=== PATIENT | male | born 1955 | race Caucasian/White ===

== ENCOUNTER 2020-08-01 11:15 | Outpatient (CLI) | payer BC, SELFPAY ==
--- NOTE | ~2020-08-01 | MR_ITS ---
EXAMINATION: MR shoulder LT wo con DATE: 08/01/2020 12:47 INDICATION: Complete rotator cuff tear or rupture of left shoulder. TECHNIQUE: Magnetic resonance imaging (MRI) of the left shoulder was performed without intravenous co ntrast. Sequences included axial PD-weighted FS FSE, coronal oblique PD-weighted FS FSE and T2-weight ed FS FSE, and sagittal oblique T2-weighted FS FSE and T1-weighted FSE. COMPARISON: Left shoulder radiographs 07/23/2020 FINDINGS: Coracoacromial arch: The acromion undersurface is flat in morphology (type I). There is severe acromioclavicular joint ost eoarthritis. There is moderate subacromial/subdeltoid bursitis. Rotator cuff: There is a full-thickness tear of supraspinatus tendon and anterior infraspinatus tendon measuring 14 mm anterior to posterior by 20 mm proximal to distal. There is a partial thickness interstitial tear of posterior infraspinatus tendon. Teres minor tendon is normal. There is an articular-sided partial tear of subscapularis tendon. There is mild fatty atrophy of the rotator cuff muscle bellies. Biceps tendon and glenoid labrum: Biceps tendon is in bicipital groove. There is mild intra-articular biceps tendinopathy. There is a t ear of the glenoid labrum from 11:00 to 12:00 (SLAP tear). Fluid: There is a small glenohumeral joint effusion. Bones/cartilage: There is cartilage surface irregularity of glenoid and humeral head. IMPRESSION: 1. Full-thickness rotator cuff tear. 2. Mild glenohumeral joint chondrosis. SLAP tear. 3. Small glenohumeral joint effusion and moderate subacromial/subdeltoid bursitis. 4. Mild intra-articular biceps tendinopathy. 5. Severe acromioclavicular joint osteoarthritis. Reviewed, dictated and finalized at location [facility]. D [employer] MANAGER IMPRESSION: 1. Full-thickness rotator cuff tear. 2. Mild glenohumeral joint chondrosis. SLAP tear. 3. Small glenohumeral joint effusion and moderate subacromial/subdeltoid bursit is. 4. Mild intra-articular biceps tendinopathy. 5. Severe acromioclavicular joint osteoarthritis.
== END 2020-08-01 11:16 | disposition home or self-care (01) ==
PROVIDERS: Visit Provider Orthopaedic Surgery
DX: M75.122 Complete rotator cuff tear or rupture of left shoulder, not specified as traumatic (principal); M19.012 Primary osteoarthritis, left shoulder; M25.412 Effusion, left shoulder
CPT/HCPCS: 73221

== ENCOUNTER 2020-08-20 00:27 | Outpatient (CLI) | payer BC, SELFPAY ==
[2020-08-20 19:06] LABS: SARS-CoV-2 RNA PCR Negative
== END 2020-08-20 00:28 | disposition home or self-care (01) ==
LOC: ANHCOVIDDT 00:27
PROVIDERS: Anesthesiology; Visit Provider Orthopaedic Surgery
DX: Z01.812 Encounter for preprocedural laboratory examination (principal); Z20.822 Contact with and (suspected) exposure to COVID-19
CPT/HCPCS: C9803; U0003

== ENCOUNTER 2020-08-23 00:53 | Day surgery (SDC) | payer BC, SELFPAY ==
[2020-08-16 13:41] VITALS: BMI 31.8
[2020-08-23] VITALS (13 sets, daily range): BP systolic 123–174; BP diastolic 65–105; PULSE 68–85; RESP 10–16; TEMP 36.1–36.6; O2SAT 94–99
[2020-08-23] MEDS: ACETAMINOPHEN 500 MG TABLET 1000 MG PO (06:42)
[2020-08-23] MEDS: LACTATED RINGERS 1,000 ML 30 ML IV CONT ×2 (07:15→10:07)
[2020-08-23] MEDS: KETOROLAC 15 MG/ML VIAL (*BKC) IV PUSH (07:17)
--- NOTE | 2020-08-23 07:19 | WPDHPUPDATE1 ---
History and Physical Update Update Date/Time: 08/23/20 07:19 History and Physical has been reviewed, including an updated exam of the patient. There are NO changes in the patient's condition. Risks, benefits, and alternatives have been discussed and questions answered. Patient agrees to proceed with procedure.
--- NOTE | 2020-08-23 07:34 | SUR.PREOP ---
[id number] STATES I AM VERY ANGRY, I WAS TOLD MY COULD BE IN HERE WITH ME AND THEY WON'T LET HER COME IN, MY PAYMENT THAT YOU GUYS TOLD ME I HAD TO MAKE THIS MORNING CAN'T BE ACCEPTED AND I CAN'T CALL UNTIL 8. MY B/P IS HIGH BECAUSE I'M ANGRY PT VERY AGITATED BUT COOPERATIVE WITH ANSWERING QUESTIONS AND WITH ALLOWING TASKS. INSISTENT THAT HE SPEAK WITH PER PHONE, CAN NOT GET PHONE SERVICE, DOES NOT WANT TO USE HOSPITAL PHONE, ALLOWED TO USE CELL PHONE IN AFTER HOURS WAITING ROOM. PT AWARE HE CAN CANCEL/POSTPONE SURGERY IF HE WANTS-STATES HE CAN'T DO THAT. DR. GALINDO AWARE OF ABOVE. 0650-CALL PLACED TO DR. ALEJANDRA TO INFORM OF ABOVE-VM LEFT. 0655-DR. ALEJANDRA RETURNED CALL AND STATES PT DOES WANT TO PROCEED. HE WILL BE HERE TO SPEAK WITH PT ~0715.
--- NOTE | 2020-08-23 07:37 | WPDANESEPPF ---
Anes - Initial Pre Proc Eval Procedure: Operation Date: 08/23/20 07:30 Proposed Procedures p Left Arthroscopic Rotator Cuff Repair Subacromial Decompression - Renaldo Kowalski MD Date/Time: 08/23/20 07:37 Surgeon: Renaldo Kowalski MD Pre Op Diagnosis: Complete Rotator Cuff Tear Patient Data Age: 64 Gender: M Height: 5 ft 8 in Weight: 98.3 kg Last Vital Signs Temp 36.6 C 08/23/20 06:18 Pulse 74 08/23/20 06:18 Resp 16 08/23/20 06:18 BP 170/94 H 08/23/20 07:14 Pulse Ox 97 08/23/20 06:18 Allergies Allergy/AdvReac Type Severity Reaction Status Date / Time erythromycin base Allergy Severe Unstoppable Verified 08/23/20 06:22 Nausea and Vomiting Home Medications Medication Instructions Recorded Confirmed Type aspirin 81 mg tablet,delayed 81 mg PO DAILY 07/23/20 08/20/20 History release atorvastatin 20 mg tablet 20 mg PO DAILY 07/23/20 08/20/20 History famotidine 20 mg PO DAILY PRN 08/23/20 08/23/20 History Patient hx anesthesia problems: none Family hx anesthesia problems: none PMFSH Past Medical History Medical History (Updated 08/23/20 @ 07:37 by Mau Gallegos MD) History of femur fracture (~2015) Hyperlipidemia Surgical History Surgical History History of shoulder surgery (~10/2002) Supraspinatus Tear/Bone Spur Family History Family History Mother Breast cancer Social History Social History Smoking status: Never smoker Alcohol intake: current Drinks per week: 2 Substance use: unknown Substance use type: does not use Living arrangements: with family Spiritual care concerns: No Anes - Eval Final PreProcedure Day of Procedure 08/23/20 07:37 Patient weight: obese Heart: regular rate and rhythm Lungs: clear to auscultation Airway: Mallampati scale class II Neurological: alert and oriented Last oral intake: >/= 8 hours ASA classification: II Emergent: no Anesthetic plan: proceed Anesthesia type and monitoring: general ETT and standard monitoring Informed Consent: The patient's anesthetic plan and its attendant risks and benefits were discussed with the patient/family/POA. Questions were solicited and answers provided to the satisfaction of the patient/family/POA.
--- NOTE | 2020-08-23 07:38 | WPDANESPNB ---
Anes - Peripheral Nerve Block Date/Time: 08/23/20 07:38 I have discussed with the patient/family/POA the placement of a peripheral nerve block for post-operative pain management, including associated risks, benefits, complications, and side effects. Alternative methods of post-operative analgesia were detailed. Questions were solicited and answers provided to the satisfaction of the patient/family/POA. Time-Out: A pre-procedural Time-Out was completed immediately before starting the procedure and confirmed: Patient Identification, Site, Procedure, Patient Position and the Availability of Requisite Equipment. Clinical Indications: Acute post-operative pain management requested by the operative surgeon. Nerve Block Insertion Note Anes-nerve block: interscalene left Patient position: supine Needle: 22 gauge, stimulating, insulated echogenic needle. Needle length: 50 mm Technique: ultrasound Injectate: bupivacaine 0.5% with epi 5 mcg/ml (30) Observations: tolerated well Complications: none Procedure start time:: 729 Procedure end time:: 734
[2020-08-23] MEDS: ceFAZolin 2 GM/D5W 50 ML 2 GM/50 ML BAG IVPB (07:41)
--- NOTE | 2020-08-23 10:16 | PM.PROC ---
Procedure Note - Detailed Date of procedure: 08/23/20 Pre-op diagnosis: Complete Rotator Cuff Tear Post-op diagnosis: other (1. Complete rotator cuff tear 2. Subacromial impingement with Os Acromiale 3. Biceps tendinosis) Procedure performed: 1. Arthrosocopic rotator cuff repair. 2. Arthroscopic subacromial decompression. 3. Biceps tenotomy. Description of procedure: He had a large mildly retracted rotator cuff tear. Tissue quality was good. Bone quality was slightly soft. Supporting grommet was used at the anterior bone tunnel. Two bone tunnel repair with 6 sutures. Rip stop technique. Type 3 acromion. Small os acromiale. This was treated with excision and acromioplasty. Biceps was very flattened and chronically degenerative. Tenotomy was performed. Only minimal degenerative changes at the glenohumeral joint. Subscapularis showed low-grade partial-thickness split tearing. Upper border and overall integrity was good. Implants: ArthroTunneler bone tunnel device with anterior supporting grommet implanted. Two #2 Ortho cord sutures, and 4 #2 suture tape. Anesthesia: GETA and regional Surgeon: Renaldo Kowalski MD Beer Coil Cleaner: Daksha Arndt PA-C Estimated blood loss (mL): 20 Complications: None Condition: stable Disposition: PACU Findings: Physician faculty i on call medical assistant, Daksha Arndt PA-C, required for surgery; including patient positioning, draping, arthroscopic camera operation, maintaining instrument position, suture retrieval, wound closure, and dressing and sling placement. Operative detail: Preoperative antibiotics were given. An interscalene block was administered in the preoperative area. The patient was bought brought to the operating room. A general anesthetic was administered. The patient was carefully positioned in the lateral position. The head and neck were carefully positioned. The non operative extremity was also carefully positioned. The shoulder was prepped and draped in the usual sterile fashion. Examination was performed. Standard posterior and anterior arthroscopic portals were established. Inflow achieved with the arthroscopic pump using saline and epinephrine. The glenohumeral joint was carefully inspected. Biceps tendon showed extensive flattening and fraying throughout the intra-articular portion. Degenerative tearing of the labrum was also observed. Biceps tenotomy was performed. Minimal degenerative changes at the inferior glenoid. Moderate synovitis throughout the joint. The medium to large size rotator cuff tear was easily identified. The subscapularis had low-grade partial-thickness tearing. Attention was turned to the subacromial space. A complete bursectomy was performed. The rotator cuff and footprint were lightly debrided. A type 3 acromion was confirmed. Acromioplasty was performed. The anterior aspect of the acromion was slightly unstable, consistent with os acromiale. The tear configuration was carefully assessed. At this point, 2 tunnels were created at the rotator cuff. One anterior and 1 posterior. The ArthroTunneler technique was utilized. Three sutures were passed through each tunnel. All sutures were then passed through the cuff tissue. The sutures were tied arthroscopically. The arthroscopic instruments were removed. The wounds were closed with 3-0 Monocryl subcuticular suture and steri strips. There were no complications. A sling was applied and the patient brought to the recovery room.
--- NOTE | 2020-08-23 11:15 | SUR.PHASEI ---
1110 - pt sleeping in intervals. when asked if having pain, pt states yes but will not rate pain
[2020-08-23] MEDS: PROPARACAINE HCL 0.5% 15 ML OPHTH SOLN 1 DROP EACH EYE (11:58)
== END 2020-08-23 12:56 | disposition home or self-care (01) ==
PROVIDERS: Visit Provider Orthopaedic Surgery
PROC: (CPT 29805; principal; 2020-08-23 07:30)
DX: M75.122 Complete rotator cuff tear or rupture of left shoulder, not specified as traumatic (principal); M75.42 Impingement syndrome of left shoulder; M75.22 Bicipital tendinitis, left shoulder; G89.18 Other acute postprocedural pain; E78.5 Hyperlipidemia, unspecified; Z79.82 Long term (current) use of aspirin; E66.9 Obesity, unspecified; Z68.33 Body mass index [BMI] 33.0-33.9, adult
CPT/HCPCS: 29827; 29826; 64415; A4565; A9270; J0330; J0690; J1100; J1885; J2250; J2405; J2704; J3010; J7120